=== PATIENT | male | born 1980 | race Caucasian/White ===

== ENCOUNTER 2016-11-29 17:00 | Emergency (ER) | payer OTHER ==
[~2016-11-29] VITALS: Ht 188 cm; Wt 90.7 kg
--- NOTE | ~2016-11-29 | EKG ---
[place] [address] [facility] [place] [address] ELECTROCARDIOGRAM REPORT Name: PATRICIA PICKENS Room #: [facility] M.R.#: [id number] Admission: Attend Phys: Discharge: Date of : 80 Report #: [id number] THIS REPORT FOR: //name// [facility] ED Test Date: 2016-11-29 Test Time: 17:04:13 Pat Name: PATRICIA PICKENS Department: Room: Gender: M Layer Off: Wang WEINSTEIN : 1980 Requested By: Livier Rausch Order Number: [id number] MD: Measurements Intervals [place] Rate: 104 P: 38 [place]: 150 QRS: 47 QRSD: 93 T: -13 QT: 397 QTc: 523 Interpretive Statements Sinus tachycardia Borderline T abnormalities, diffuse leads Prolonged QT interval No previous ECG available for comparison [email or web address] By: 03 03 Patel Sweeney MD /EPI
[~2016-11-29 17:00] MED LIST: BUSPIRONE HCL10 MG PO; INDERAL LA60 M1 PO; SEROQUEL200 MG PO; ZANTAC 150MG T150 MG PO
[2016-11-29 17:21] LABS: ABSOLUTE NEUTROPHILS 7.2 thou/uL (1.4-8.2); BASOPHILS 0.4 % (0.0-2.0); EOSINOPHILS 0.4 % (0.0-3.0); HEMOGLOBIN 16.1 gm/dL (14.0-18.0); LYMPHOCYTES 20.7 % (24.0-44.0); MCH 32.7 pg (26.0-34.0); MCHC 34.9 g/dL (28.0-37.0); MCV 93.7 fL (80.0-100.0); MONOCYTES 6.2 % (1.0-8.0); PLATELET COUNT 322 thou/uL (150-400); POLYS 72.3 % (36.0-66.0); RBC 4.91 mil/uL (4.50-6.00); RDW 12.4 % (10.5-14.5); WBC 9.9 thou/uL (4.0-11.0)
[2016-11-29 17:24] LABS: MANUAL DIFF NO
[2016-11-29 17:30] LABS: ANION GAP 10 mmol/L (7-16); BUN 14 mg/dL (7-18); CALCIUM 9.5 mg/dL (8.5-10.1); CHLORIDE 102 mmol/L (98-107); CO2 26 mmol/L (21-32); GLUCOSE 114 mg/dL (74-106); POTASSIUM 3.8 mmol/L (3.5-5.1); SODIUM 138 mmol/L (136-145)
[2016-11-29 17:38] LABS: ALKALINE PHOSPHATASE 76 U/L (46-116); SGOT 21 U/L (15-37); SGPT 29 U/L (30-65); TOTAL BILIRUBIN 0.3 mg/dL (<0.1-1.0); TOTAL PROTEIN 8.1 g/dL (6.4-8.2); TROPONIN-I < 0.04 ng/mL (<0.04-0.07)
[2016-11-29 18:04] LABS: PROTIME 10.1 Seconds (9.3-11.4)
[2016-11-29] MEDS ORDERED: EFFEXOR 5050 MG/1 T1 PO (18:05)
[2016-11-29] MEDS ORDERED: MINIPRESS5 MG PO (18:06)
[2016-11-29] MEDS ORDERED: HYDROXYZINE HCL25 M2 GT (18:06)
[2016-11-29 19:12] LABS: URINE BILIRUBIN NEGATIVE (Negative); URINE BLOOD TRACE (Negative); URINE COLOR YELLOW; URINE GLUCOSE-RANDOM* NEGATIVE (Negative); URINE KETONES NEGATIVE (Negative); URINE NITRITE NEGATIVE (Negative); URINE PROTEIN (DIPSTICK) NEGATIVE (Negative); URINE SPECIFIC GRAVITY 1.015 (1.003-1.035); URINE UROBILINOGEN 0.2 E.U./dl (0.2-1.0)
[2016-11-29 19:20] LABS: AMP/METHAMP POSITIVE (Negative); BARBITURATES Negative (Negative); BENZODIAZEPINES Negative (Negative); COCAINE Negative (Negative); METHADONE Negative (Negative); OPIATES POSITIVE (Negative); PCP Negative (Negative); THC Negative (Negative)
[2016-11-29 20:38] VITALS: BP 138/81
== END 2016-11-29 20:39 | disposition home or self-care (01) ==
LOC: ER 17:00
PROVIDERS: Physician Assistant
DX: R07.89 Other chest pain (principal); F41.9 Anxiety disorder, unspecified; F17.210 Nicotine dependence, cigarettes, uncomplicated; F15.10 Other stimulant abuse, uncomplicated; Z88.0 Allergy status to penicillin; Z88.8 Allergy status to other drugs, medicaments and biological substances